=== PATIENT | male | born 1970 | race Caucasian/White ===

== ENCOUNTER 2018-06-14 20:01 | Emergency (ER) | payer OTHER ==
[~2018-06-14] VITALS: Ht 177.8 cm; Wt 83.0 kg
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
--- NOTE | 2018-06-14 20:38 | NUR ---
BEDSIDE FOR EVAL
[2018-06-14] MEDS ORDERED: IV NS 0.9% 1,000 ML BAG IV ONE (21:00)
--- NOTE | 2018-06-14 21:11 | NUR ---
PT REFUSED IV INSERTION, BLOOD DRAW, AND CT WITH CONTRAST. MADE AWARE
--- NOTE | 2018-06-14 22:02 | NUR ---
PT TO CT
--- NOTE | 2018-06-14 23:15 | NUR ---
Patient discharged to home in stable condition. Written and verbal after care instructions given. Patient verbalizes understanding of instruction. no s/s no distress noted upon discharge
[2018-06-14 23:16] VITALS: BP 134/89
== END 2018-06-14 23:19 | disposition home or self-care (01) ==
LOC: ER 20:05
DX: R10.84 Generalized abdominal pain (principal); Z90.5 Acquired absence of kidney; Z88.6 Allergy status to analgesic agent; V49.49XA Driver injured in collision with other motor vehicles in traffic accident, initial encounter; Y93.89 Activity, other specified; Y92.413 State road as the place of occurrence of the external cause; Y99.8 Other external cause status
CPT/HCPCS: 74176; 99284; A4606; A6253; J7030; Z7610